=== PATIENT | female | born 1995 | race Caucasian/White ===

== ENCOUNTER 2017-06-17 10:43 | Emergency (ER) | payer BC, OTHER ==
--- NOTE | 2017-06-17 11:13 | EDM.PDOC ---
ED HPI GENERAL MEDICAL PROBLEM - General Chief Complaint: Gastrointestinal Problem Stated Complaint: ABDOMINAL PAIN- POSS PREG Time Seen by Provider: 06/17/17 11:04 Source of Information: Reports: Patient History Limitations: Reports: No Limitations - History of Present Illness INITIAL COMMENTS - FREE TEXT/NARRATIVE: 21-year-old female presents for evaluation and treatment of intermittent lower abdominal pain. Patient reports that she's had lower abdominal discomfort for the past month. She describes it as a cramping sensation. She did have some pain earlier this morning but does not have any pain currently. Patient also reports over the last month she's had one episodes of looser stools per day. She has not appreciated a blood in her stool. She denies any nausea, vomiting, fevers, chills, cough, dysuria or hematuria. She reports that she has had a decreased appetite. Patient reports her last menstrual period was in March. States that that menstrual cycle was not as heavy as normal and did not last as long. She was previously on oral contraceptive pills up until the beginning of this month. She stopped in and effort to restart her menstrual cycle restart. She states that she took 3 test at home and they have all been negative. Last test was about 3 days ago. Patient has not seen anybody for the abdominal pain. Reports that she is from [place] and is here [place] for school. Insurance only covers ER visits here in [place]. Previous abdominal surgeries include a laparoscopic appendectomy. Location: Reports: Abdomen - Related Data Allergies Allergy/AdvReac Type Severity Reaction Status Date / Time No Known Allergies Allergy Verified 06/17/17 10:52 Home Meds: Home Meds Omeprazole 20 mg PO DAILY 06/17/17 [History] Past Medical History - Past Health History Medical/Surgical History: Denies Medical/Surgical History Social & Family History - Tobacco Use Smoking Status *Q: Never Smoker - Recreational Drug Use Recreational Drug Use: No ED ROS GENERAL - Review of Systems Review Of Systems: See Below Constitutional: Denies: Fever, Chills GI/Abdominal: Reports: Abdominal Pain (lower abdomen, bilateral), Diarrhea ( reports 1 episode per day x 1 month). Denies: Hematochezia, Melena, Nausea, Vomiting : Denies: Dysuria, Hematuria ED EXAM, GI/ABD - Physical Exam Exam: See Below Exam Limited By: No Limitations General Appearance: Alert, WD/WN, No Apparent Distress Ears: Normal External Exam Nose: Normal Inspection Throat/Mouth: Normal Inspection, Normal Voice, No Airway Compromise Respiratory/Chest: No Respiratory Distress, Lungs Clear, Normal Breath Sounds Cardiovascular: Normal Peripheral Pulses, Regular Rate, Rhythm, No Murmur GI/Abdominal Exam: Normal Bowel Sounds, Soft, Non-Tender. No: Distended, Guarding Neurological: Alert, Oriented, Normal Cognition Psychiatric: Normal Affect, Normal Mood Skin Exam: Warm, Dry, Normal Color Course - Vital Signs Last Recorded V/S: Last Vital Signs Temp 37.0 C 06/17/17 10:52 Pulse 83 06/17/17 10:52 Resp BP 117/69 06/17/17 10:52 Pulse Ox 100 06/17/17 10:52 - Orders/Labs/Meds Labs: Laboratory Tests 06/17/17 06/17/17 06/17/17 Range/Units 11:25 11:25 11:50 WBC 4.14 (3.98-10.04) K/mm3 RBC 5.14 (3.98-5.22) M/mm3 Hgb 13.2 (11.2-15.7) gm/L Hct 41.4 (34.1-44.9) % MCV 80.5 (79.4-94.8) fl MCH 25.7 (25.6-32.2) pg MCHC 31.9 L (32.2-35.5) g/dl RDW Std Deviation 47.6 H (36.4-46.3) fL Plt Count 280 (182-369) K/mm3 MPV 9.9 (9.4-12.3) fl Neutrophils % (Manual) 57 (40-60) % Band Neutrophils % 0 (0-10) % Lymphocytes % (Manual) 33 (20-40) % Atypical Lymphs % 0 % Monocytes % (Manual) 9 (2-10) % Eosinophils % (Manual) 1 (0.7-5.8) % Basophils % (Manual) 0 L (0.1-1.2) Platelet Estimate Adequate Anisocytosis 1+ slight RBC Morph Comment Not Reportable Sodium 140 (136-145) mEq/L Potassium 3.8 (3.5-5.1) mEq/L Chloride 105 (98-107) mEq/L Carbon Dioxide 26 (21-32) mEq/L Anion Gap 12.8 (5-15) BUN 6 L (7-18) mg/dL Creatinine 0.7 (0.55-1.02) mg/dL Est Cr Clr Drug Dosing 97.54 mL/min Estimated GFR (MDRD) > 60 (>60) mL/min BUN/Creatinine Ratio 8.6 L (14-18) Glucose 79 (74-106) mg/dL Calcium 9.1 (8.5-10.1) mg/dL Total Bilirubin 0.4 (0.2-1.0) mg/dL AST 36 (15-37) U/L ALT 90 H (14-59) U/L Alkaline Phosphatase 73 (46-116) U/L C-Reactive Protein < 0.2 (<1.0) mg/dL Total Protein 8.0 (6.4-8.2) g/dl Albumin 4.1 (3.4-5.0) g/dl Globulin 3.9 gm/dL Albumin/Globulin Ratio 1.1 (1-2) TSH 3rd Generation 2.676 (0.516-4.13) uIU/mL HCG, Quant < 1.0 mIU/mL Urine Color Yellow (Yellow) Urine Appearance Clear (Clear) Urine pH 7.5 (5.0-8.0) Ur Specific [place] 1.015 (1.005-1.030) Urine Protein Negative (Negative) Urine Glucose (UA) Negative (Negative) Urine Ketones Negative (Negative) Urine Occult Blood Negative (Negative) Urine Nitrite Negative (Negative) Urine Bilirubin Negative (Negative) Urine Urobilinogen 0.2 (0.2-1.0) Ur Leukocyte Esterase Negative (Negative) Urine RBC Not seen (0-5) /hpf Urine WBC 0-5 (0-5) /hpf Ur Epithelial Cells 0-5 (0-5) /hpf Urine Bacteria Not seen (FEW) /hpf Urine Mucus Few (FEW) /hpf - Radiology Interpretation Free Text/Narrative:: Abdomen: Supine and upright views of the abdomen were obtained. Comparison: No previous study. Bowel gas pattern is unremarkable. No abnormal calcifications or soft tissue abnormality is seen. Bony structures are unremarkable. No free air is seen. Impression: 1. No abnormality is seen on two-view abdominal x-ray. - Re-Assessments/Exams Free Text/Narrative Re-Assessment/Exam: 06/17/17 11:21 Plan will be to obtain labs first. Will obtain imaging later if needed. 06/17/17 13:44 I reviewed the labs and imaging with the patient. I'll her start a probiotic. I also have her restart her control and if her menstrual cycle does not return to normal menstrual cycle she will follow up with OB. Discharge instructions as documented. Departure - Departure Time of Disposition: 13:44 Disposition: Home, Self-Care 01 Condition: Fair Clinical Impression: Amenorrhea, Abdominal pain - Discharge Information Instructions: Abdominal Pain, Adult, [id number] Referrals: PCP,None [Ordering Only Provider] - Forms: ED Department Discharge Additional Instructions: Recommend starting an [id number] probiotic. Take Tylenol or Motrin as needed for discomfort. Recommend restarting your oral contraceptive pills. If your menstrual cycle does not return to normal menstrual cycle, follow-up with OB as planned over spring. Please return to the ER if your symptoms change or worsen.
--- NOTE | 2017-06-17 14:46 | CR ---
Abdomen: Supine and upright views of the abdomen were obtained. Comparison: No previous study. Bowel gas pattern is unremarkable. No abnormal calcifications or soft tissue abnormality is seen. Bony structures are unremarkable. No free air is seen. Impression: 1. No abnormality is seen on two-view abdominal x-ray. Diagnostic code #1
== END 2017-06-17 13:57 | disposition home or self-care (01) ==
LOC: JD.ED 10:43
DX: N91.2 Amenorrhea, unspecified (principal); Z79.899 Other long term (current) drug therapy
CPT/HCPCS: 36415; 74019; 74019-26; 80053; 81001; 84443; 84702; 85025; 86140; 99282; 99284

== ENCOUNTER 2017-07-15 08:43 | Emergency (ER) | payer BC ==
[2017-07-15] MEDS ORDERED: Ondansetron 4 MG/2 ML SDV IVPUSH ONE (09:22)
[2017-07-15] MEDS ORDERED: Sodium Chloride 0.9% 1,000 ML IV STA (09:22)
[2017-07-15] MEDS ORDERED: Sodium Chloride 0.9% 10 ML Syringe FLUSH PRN (09:22)
[2017-07-15] MEDS ORDERED: HYDROmorphone 0.5 MG/0.5 ML SYRINGE IVPUSH ONE (09:24)
--- NOTE | 2017-07-15 09:31 | EDM.PDOC ---
ED HPI GENERAL MEDICAL PROBLEM - General Chief Complaint: Gastrointestinal Problem Stated Complaint: NAUSEA Time Seen by Provider: 07/15/17 08:54 Source of Information: Reports: Patient History Limitations: Reports: No Limitations - History of Present Illness INITIAL COMMENTS - FREE TEXT/NARRATIVE: The patient presents with nausea and abdominal pain. This started about 1 week ago but about 1 month ago she had nausea and lower abdominal pain. Now she has nausea constantly for 1 week and pain in the upper abdomen after eating. She has a history of GERD and she is taking her omeprazole. She says when ever she eats she will get upper abdominal pain. She has no fever, chills, cough, chest pain, shortness of breath, vomiting or dysuria. She has not had a period in awhile. She could be . The pain is better now. She had a bowel movement yesterday and she noticed that it was dark. She did take pepto bismal about 4 days ago. Onset: Gradual Duration: Week(s): (1) Location: Reports: Abdomen Quality: Reports: Sharp Severity: Moderate Improves with: Reports: None Worsens with: Reports: Eating Associated Symptoms: Reports: Loss of Appetite, Nausea/Vomiting. Denies: Chest Pain, Cough, Fever/Chills, Headaches, Shortness of Breath - Related Data Allergies Allergy/AdvReac Type Severity Reaction Status Date / Time No Known Allergies Allergy Verified 07/15/17 08:56 Home Meds: Home Meds Omeprazole 20 mg PO DAILY 06/17/17 [History] Metoclopramide HCl [Reglan] 10 mg PO Q6HR PRN #20 tablet 07/15/17 [Rx] Past Medical History - Past Health History Medical/Surgical History: Denies Medical/Surgical History Gastrointestinal History: Reports: GERD Social & Family History - Tobacco Use Smoking Status *Q: Never Smoker - Caffeine Use Caffeine Use: Reports: Coffee - Recreational Drug Use Recreational Drug Use: No ED ROS GENERAL - Review of Systems Review Of Systems: See Below Constitutional: Reports: No Symptoms HEENT: Reports: No Symptoms Respiratory: Reports: No Symptoms Cardiovascular: Reports: No Symptoms Endocrine: Reports: No Symptoms GI/Abdominal: Reports: Abdominal Pain, Diarrhea, Nausea. Denies: Vomiting ED EXAM, GI/ABD - Physical Exam Exam: See Below Exam Limited By: No Limitations General Appearance: Alert, No Apparent Distress Ears: Normal External Exam Nose: Normal Inspection Head: Atraumatic, Normocephalic Neck: Normal Inspection Respiratory/Chest: No Respiratory Distress, Lungs Clear, Normal Breath Sounds Cardiovascular: Regular Rate, Rhythm, No Edema, No Murmur GI/Abdominal Exam: Soft, No Organomegaly, No Mass, Tender (Moderate to the RUQ and left lower abdomen) Back Exam: Normal Inspection Extremities: Normal Inspection Course - Vital Signs Last Recorded V/S: Last Vital Signs Temp 97.4 F 07/15/17 08:53 Pulse 85 07/15/17 08:53 Resp 18 07/15/17 08:53 BP 116/75 07/15/17 08:53 Pulse Ox 100 07/15/17 08:53 - Orders/Labs/Meds Orders: Active Orders 24 hr Category Date Time Status Peripheral IV Care [RC] . DIRECTED Care 07/15/17 09:23 Active Sodium Chloride 0.9% [Saline Flush] Med 07/15/17 09:22 Active 10 ml FLUSH ASDIRECTED PRN ED Antiemetic Medication Reflex [OM.PC] Stat Oth 07/15/17 09:23 Ordered Peripheral IV Insertion Adult [OM.PC] Stat Oth 07/15/17 09:22 Ordered Medication Orders Sodium Chloride (Saline Flush) 10 ml FLUSH ASDIRECTED PRN PRN Reason: Keep Vein Open Last Admin: 07/15/17 10:17 Dose: 10 ml Labs: Laboratory Tests 07/15/17 07/15/17 07/15/17 Range/Units 09:30 09:30 09:30 WBC 4.30 (3.98-10.04) K/mm3 RBC 5.02 (3.98-5.22) M/mm3 Hgb 13.2 (11.2-15.7) gm/L Hct 40.1 (34.1-44.9) % MCV 79.9 (79.4-94.8) fl MCH 26.3 (25.6-32.2) pg MCHC 32.9 (32.2-35.5) g/dl RDW Std Deviation 46.1 (36.4-46.3) fL Plt Count 245 (182-369) K/mm3 MPV 9.7 (9.4-12.3) fl Neut % (Auto) 71.9 H (34.0-71.1) % Lymph % (Auto) 15.1 L (19.3-51.7) % [place] % (Auto) 10.7 (4.7-12.5) % Eos % (Auto) 1.6 (0.7-5.8) Baso % (Auto) 0.5 (0.1-1.2) % Neut # (Auto) 3.09 (1.56-6.13) K/mm3 Lymph # (Auto) 0.65 L (1.18-3.74) K/mm3 [place] # (Auto) 0.46 H (0.24-0.36) K/mm3 Eos # (Auto) 0.07 (0.04-0.36) K/mm3 Baso # (Auto) 0.02 (0.01-0.08) K/mm3 Sodium 137 (136-145) mEq/L Potassium 3.9 (3.5-5.1) mEq/L Chloride 102 (98-107) mEq/L Carbon Dioxide 22 (21-32) mEq/L Anion Gap 16.9 H (5-15) BUN 7 (7-18) mg/dL Creatinine 0.7 (0.55-1.02) mg/dL Est Cr Clr Drug Dosing 92.85 mL/min Estimated GFR (MDRD) > 60 (>60) mL/min BUN/Creatinine Ratio 10.0 L (14-18) Glucose 76 (74-106) mg/dL Calcium 9.1 (8.5-10.1) mg/dL Total Bilirubin 0.6 (0.2-1.0) mg/dL AST 26 (15-37) U/L ALT 56 (14-59) U/L Alkaline Phosphatase 53 (46-116) U/L Total Protein 7.8 (6.4-8.2) g/dl Albumin 4.0 (3.4-5.0) g/dl Globulin 3.8 gm/dL Albumin/Globulin Ratio 1.1 (1-2) Lipase 124 (73-393) U/L HCG, Qual Positive H (NEGATIVE) HCG, Quant mIU/mL Urine Color (Yellow) Urine Appearance (Clear) Urine pH (5.0-8.0) Ur Specific [place] (1.005-1.030) Urine Protein (Negative) Urine Glucose (UA) (Negative) Urine Ketones (Negative) Urine Occult Blood (Negative) Urine Nitrite (Negative) Urine Bilirubin (Negative) Urine Urobilinogen (0.2-1.0) Ur Leukocyte Esterase (Negative) Urine RBC (0-5) /hpf Urine WBC (0-5) /hpf Ur Epithelial Cells (0-5) /hpf Urine Bacteria (FEW) /hpf Urine Mucus (FEW) /hpf 07/15/17 07/15/17 Range/Units 09:30 11:10 WBC (3.98-10.04) K/mm3 RBC (3.98-5.22) M/mm3 Hgb (11.2-15.7) gm/L Hct (34.1-44.9) % MCV (79.4-94.8) fl MCH (25.6-32.2) pg MCHC (32.2-35.5) g/dl RDW Std Deviation (36.4-46.3) fL Plt Count (182-369) K/mm3 MPV (9.4-12.3) fl Neut % (Auto) (34.0-71.1) % Lymph % (Auto) (19.3-51.7) % [place] % (Auto) (4.7-12.5) % Eos % (Auto) (0.7-5.8) Baso % (Auto) (0.1-1.2) % Neut # (Auto) (1.56-6.13) K/mm3 Lymph # (Auto) (1.18-3.74) K/mm3 [place] # (Auto) (0.24-0.36) K/mm3 Eos # (Auto) (0.04-0.36) K/mm3 Baso # (Auto) (0.01-0.08) K/mm3 Sodium (136-145) mEq/L Potassium (3.5-5.1) mEq/L Chloride (98-107) mEq/L Carbon Dioxide (21-32) mEq/L Anion Gap (5-15) BUN (7-18) mg/dL Creatinine (0.55-1.02) mg/dL Est Cr Clr Drug Dosing mL/min Estimated GFR (MDRD) (>60) mL/min BUN/Creatinine Ratio (14-18) Glucose (74-106) mg/dL Calcium (8.5-10.1) mg/dL Total Bilirubin (0.2-1.0) mg/dL AST (15-37) U/L ALT (14-59) U/L Alkaline Phosphatase (46-116) U/L Total Protein (6.4-8.2) g/dl Albumin (3.4-5.0) g/dl Globulin gm/dL Albumin/Globulin Ratio (1-2) Lipase (73-393) U/L HCG, Qual (NEGATIVE) HCG, Quant 26224.0 mIU/mL Urine Color Yellow (Yellow) Urine Appearance Clear (Clear) Urine pH 7.0 (5.0-8.0) Ur Specific [place] 1.020 (1.005-1.030) Urine Protein 1+ H (Negative) Urine Glucose (UA) Negative (Negative) Urine Ketones 3+ H (Negative) Urine Occult Blood Negative (Negative) Urine Nitrite Negative (Negative) Urine Bilirubin Negative (Negative) Urine Urobilinogen 0.2 (0.2-1.0) Ur Leukocyte Esterase Negative (Negative) Urine RBC 0-5 (0-5) /hpf Urine WBC 0-5 (0-5) /hpf Ur Epithelial Cells 0-5 (0-5) /hpf Urine Bacteria Few (FEW) /hpf Urine Mucus Not seen (FEW) /hpf Meds: Medications Generic Name Dose Route Start Last Admin Trade Name Herlinda PRN Reason Stop Dose Admin Sodium Chloride 10 ml 07/15/17 09:22 07/15/17 10:17 Saline Flush FLUSH 10 ml ASDIRECTED PRN Administration Keep Vein Open Discontinued Medications Generic Name Dose Route Start Last Admin Trade Name Herlinda PRN Reason Stop Dose Admin Hydromorphone HCl 0.5 mg 07/15/17 09:24 07/15/17 10:16 Dilaudid IVPUSH 07/15/17 09:25 0.5 mg ONETIME ONE Administration Sodium Chloride 1,000 mls @ 1,000 mls/hr 07/15/17 09:22 07/15/17 10:17 Normal Saline IV 07/15/17 10:21 1,000 mls/hr .BOLUS STA Administration Ondansetron HCl 4 mg 07/15/17 09:22 07/15/17 10:15 Zofran IVPUSH 07/15/17 09:23 4 mg ONETIME ONE Administration - Re-Assessments/Exams Free Text/Narrative Re-Assessment/Exam: 07/15/17 09:31 I ordered an IV NS 1L bolus, zofran 4mg IV, dilaudid 0.5mg IV, labs, UA, and an US of her gallbladder. 07/15/17 12:30 Her CBC and CMP look good. Her UA shows no UTI. Her HCG is positive. I have ordered a quant HCG and a transvaginal US. The US of her gallbladder shows slight prominent collecting system of the right kidney. This may be normal variant but please exclude any symptoms to suggest ureteral obstruction. No additional abnormality is identified on right upper quadrant abdominal US. He urine has no blood and she has no flank pain, dysuria or hematuria. The transvaginal US shows a single intrauterine gestation. Dates are 7 weeks 6 days. No complicating process is seen by US at this time. She feels better. I will have her stop her control. Have her take a multivitamin and give her some reglan for nausea. I will have her follow up with Dr Ortiz. Departure - Departure Time of Disposition: 12:40 Disposition: Home, Self-Care 01 Condition: Good Clinical Impression: Qualifiers: Weeks of gestation: less than 8 weeks Qualified Code(s): Z3A.01 - Less than 8 weeks gestation of Abdominal pain Qualifiers: Abdominal location: right upper quadrant Qualified Code(s): R10.11 - Right upper quadrant pain Nausea and vomiting Qualifiers: Vomiting type: unspecified Vomiting Intractability: non-intractable Qualified Code(s): R11.2 - Nausea with vomiting, unspecified - Discharge Information Prescriptions: Metoclopramide HCl [Reglan] 10 mg PO Q6HR PRN #20 tablet PRN Reason: Nausea/Vomiting Referrals: PCP,None [Primary Care Provider] - Arnold Ortiz MD [Physician] - 1 Week Forms: ED Department Discharge Additional Instructions: Stop your control pills. Drink plenty of fluids and eat a well balanced meal. Take the reglan as needed every 6 hours for nausea and vomiting. Take a prenantal vitamin. Follow up with Dr Ortiz within the week. Please return if you are worse. - My Orders Last 24 Hours: My Active Orders 07/15/17 09:22 Sodium Chloride 0.9% [Saline Flush] 10 ml FLUSH ASDIRECTED PRN Peripheral IV Insertion Adult [OM.PC] Stat 07/15/17 09:23 Peripheral IV Care [RC] . DIRECTED ED Antiemetic Medication Reflex [OM.PC] Stat - Assessment/Plan Last 24 Hours: My Active Orders 07/15/17 09:22 Sodium Chloride 0.9% [Saline Flush] 10 ml FLUSH ASDIRECTED PRN Peripheral IV Insertion Adult [OM.PC] Stat 07/15/17 09:23 Peripheral IV Care [RC] . DIRECTED ED Antiemetic Medication Reflex [OM.PC] Stat
--- NOTE | 2017-07-15 10:36 | US ---
Limited abdominal ultrasound: Multiple real-time images of the upper right abdomen were obtained. Comparison: Previous abdominal x-ray of 06/17/17, no previous ultrasound or CT exam. Findings: Liver shows no focal abnormality. Visualized portions of the pancreas are within normal limits. Collecting system of the right kidney is slightly prominent. Right kidney is otherwise unremarkable by ultrasound exam. Right kidney has a length of 11.2 cm. Gallbladder shows no gallstones. No gallbladder wall thickening or biliary duct dilatation is seen. Impression: 1. Slightly prominent collecting system of the right kidney. This may be normal variant but please exclude any symptoms to suggest ureteral obstruction. 2. No additional abnormality is identified on right upper quadrant abdominal ultrasound. Diagnostic code #3
--- NOTE | 2017-07-15 12:19 | US ---
First trimester obstetrical ultrasound: Multiple real-time images were obtained transvaginally. Comparison: No prior ultrasound for current . Dates: LMP: LMP given as 04/14/17, ZULEMA 01/19/18, gestational age 13 weeks 1 day Current ultrasound: ZULEMA 03/04/18, gestational age 6 weeks 6 days Single intrauterine gestation is seen. Amniotic fluid volume is normal. Embryo and yolk sac are identified. No subchorionic hemorrhage is seen. Maternal ovaries are seen and appear within normal limits. Measurements: Gestational sac: 2.79 cm - 7 weeks 6 days C-Road-rump length: 0.87 cm - 6 weeks 6 days Heart rate: 138 bpm Impression: 1. Single intrauterine gestation. Dates as noted above. Please note date discrepancy between LMP and current ultrasound. 2. No complicating process is seen by ultrasound at this time. Diagnostic code #1
== END 2017-07-15 13:03 | disposition home or self-care (01) ==
LOC: JD.ED 08:43
DX: O21.9 Vomiting of pregnancy, unspecified (principal); O99.89 Other specified diseases and conditions complicating pregnancy, childbirth and the puerperium; K21.9 Gastro-esophageal reflux disease without esophagitis; R10.11 Right upper quadrant pain; R11.2 Nausea with vomiting, unspecified; Z3A.01 Less than 8 weeks gestation of pregnancy
CPT/HCPCS: 36415; 76705; 76817; 80053; 81001; 83690; 84702; 84703; 85025; 96361; 96374; 96375; 99284; J1170; J2405; J7040; J7050